=== PATIENT | male | born 1950 | race Caucasian/White ===

== ENCOUNTER 2020-07-27 07:16 | Day surgery (SDC) | payer MEDICARE ==
[2020-07-27] MEDS ORDERED: Midazolam 1 MG/ML 2 ML SDV ONE (07:19)
[2020-07-27] MEDS ORDERED: fentaNYL 100 MCG/2 ML SDV ONE (07:19)
[2020-07-27] MEDS ORDERED: Propofol 200 MG/20 ML SDV ONE (07:20)
[2020-07-27] MEDS ORDERED: Dextrose 5%-Lactated Ringers 1,000 ML IV SCH (08:00)
--- NOTE | 2020-07-30 08:10 | OR ---
DATE OF PROCEDURE: 07/27/2020 SURGEON: Luis Manuel Caro MD PREOPERATIVE DIAGNOSIS: Indications for screening colonoscopy. POSTOPERATIVE DIAGNOSIS: Left colonic diverticulosis, otherwise normal screening colonoscopy. OPERATIVE PROCEDURE: Flexible colonoscopy. ANESTHESIA: IV sedation. INDICATION FOR PROCEDURE: A 70-year-old male presenting for screening colonoscopy, has no personal or family history of colonic neoplasia. The plan was to proceed with a colonoscopy with biopsies and polypectomy as indicated. Potential risks including bleeding and perforation were discussed, and the patient wishes to proceed. DETAILS OF PROCEDURE: The patient was taken to the operating room, placed in a left lateral decubitus position. IV sedation was administered, after which the initial digital rectal exam was performed, and it was unremarkable. Colonoscope was then passed into the rectum with retroflexion revealing uncomplicated hemorrhoidal columns. Scope was eventually passed to the level of the cecum. The prep was quite good with only a small amount of liquid stool present to that level. The patient had some left colonic diverticulosis which was otherwise uncomplicated. There were no areas of colitis and no polyps or other signs of neoplasia. The scope was then withdrawn and the procedure then concluded. Given the absence of personal or family history of colon neoplasia, the recommendation would be to repeat colonoscopy in 10 years. Luis Manuel Caro MD /[id number]
== END 2020-07-27 11:10 | disposition home or self-care (01) ==
LOC: JP.SDS 07:16
PROVIDERS: ATTEND Surgery
DX: Z12.11 Encounter for screening for malignant neoplasm of colon (principal); K57.30 Diverticulosis of large intestine without perforation or abscess without bleeding
CPT/HCPCS: G0121; J2250; J2704; J3010; J7121

== ENCOUNTER 2022-12-08 12:20 | Emergency (ER) | payer OTHER ==
[2022-12-08] MEDS ORDERED: Sodium Chloride 0.9% 10 ML Syringe FLUSH PRN (12:30)
[2022-12-08 12:44] LABS: BASOPHILS ABSOLUTE AUTO 0.05 K/uL (0.00-0.10); BASOPHILS PERCENT AUTO 0.5 % (0.1-1.3); EOSINOPHILS ABSOLUTE AUTO 0.05 K/uL (0.00-0.40); EOSINOPHILS PERCENT AUTO 0.5 % (0.0-5.4); HEMATOCRIT 41.2 % (38.4-49.7); HEMOGLOBIN 14.2 g/dL (12.9-16.9); IMMATURE GRAN ABSOLUTE AUTO 0.05 K/uL (0.00-0.23); IMMATURE GRAN PERCENT AUTO 0.5 % (0.0-0.7); LYMPHOCYTES ABSOLUTE AUTO 1.16 K/uL (0.8-3.3); LYMPHOCYTES PERCENT AUTO 10.5 % (11.4-47.7); MEAN CORPUSCULAR HEMOGLOBIN 32.2 pg (31.6-35.5); MEAN CORPUSCULAR HGB CONC 34.5 g/dL (31.6-35.5); MEAN CORPUSCULAR VOLUME 93.4 fL (81.4-99.0); MONOCYTES ABSOLUTE AUTO 0.88 K/uL (0.20-0.90); NEUTROPHILS ABSOLUTE AUTO 8.84 K/uL (1.0-7.6); PLATELET COUNT,PLT 264 K/uL (130-375); RED BLOOD CELL COUNT 4.41 M/uL (4.14-5.76)
[2022-12-08 13:03] LABS: PROTHROMBIN TIME 10.4 sec (9.2-10.6); PTT,PARTIAL THROMBOPLSTIN TIME 25.6 sec (21.8-27.3)
[2022-12-08 13:07] LABS: ANION GAP 9.8 mmol/L (5.0-14.0); CALCIUM 8.7 mg/dL (8.5-10.1); EST CRCL DRUG DOSING (CG) 68.74 mL/min; TROPONIN I HIGH SENSITIVITY 14.3 pg/mL (<=60.3)
[2022-12-08 13:39] LABS: LYME AB IgG Negative (Negative)
[2022-12-08 14:01] LABS: LYME AB IgM Negative (Negative)
== END 2022-12-08 14:48 | disposition home or self-care (01) ==
LOC: JP.ED 12:20
DX: G45.9 Transient cerebral ischemic attack, unspecified (principal); Z88.0 Allergy status to penicillin; Z88.8 Allergy status to other drugs, medicaments and biological substances
CPT/HCPCS: 36415; 70450; 70450-26; 80048; 82947; 84484; 85025; 85610; 85730; 86618; 93005; 99285